=== PATIENT | female | born 1990 | race Two or more races ===

== ENCOUNTER 2016-08-10 23:50 | Emergency (ER) | payer MEDICAID ==
[~2016-08-10] VITALS: Ht 160 cm; Wt 103.0 kg
[2016-08-11 00:14] VITALS: Ht 160 cm; Wt 103.0 kg
[2016-08-11] MEDS ORDERED: ALBU8.5H3 INH (01:16)
[2016-08-11] MEDS ORDERED: CETI10CA PO (01:16)
[2016-08-11] MEDS ORDERED: ACET500C5 PO (01:16)
--- NOTE | 2016-08-11 01:37 | ERD ---
ER Documentation Chief Complaint Date/Time DATE: 08/11/16 TIME: 01:33 Chief Complaint cough, sob and chest wall pain for 2 days HPI 26-year-old female presents here in emergency department for complaints of cough , shortness of breath and chest wall pain after coughing for 2 days. Patient has been having dry cough, does not have any wheezing. Patient has been having on and off wheezing. Patient does not have any medications that she is taking at home. Patient has been runny nose nasal congestion clear nasal discharge. Patient is 31 weeks . Patient denies any abdominal pain, flank pain. Patient does wants her baby to be checked. Patient denies any pelvic pain. ROS All systems reviewed and are negative except as per history of present illness. Medications Home Meds Active Scripts Cetirizine Hcl* (Zyrtec*) 10 Mg Capsule, 10 MG PO DAILY, #30 TAB.CHEW Prov:MARBIN CRUZ NP 08/11/16 Acetaminophen* (Tylophen*) 500 Mg Capsule, 1 CAP PO Q6H Y for PAIN AND OR ELEVATED TEMP, #20 CAP Prov:MARBIN CRUZ NP 08/11/16 Albuterol Sulfate* (Proair HFA*) 8.5 Gm Hfa.aer.ad, 2 PUFF INH Q4H Y for WHEEZING AND SOB, #1 INHALER Prov:MARBIN CRUZ NP 08/11/16 Allergies Allergies: Coded Allergies: No Known Allergy (Unverified , 08/11/16) PMhx/Soc Medical and Surgical Hx: pt denies Medical Hx, pt denies Surgical Hx History of Surgery: No Anesthesia Reaction: No Hx Neurological Disorder: No Hx Respiratory Disorders: No Hx Cardiac Disorders: No Hx Psychiatric Problems: No Hx Miscellaneous Medical Probl: No Hx Alcohol Use: No Hx Substance Use: No Hx Tobacco Use: No Smoking Status: Never smoker FmHx Family History: No coronary disease, No diabetes, No other Physical Exam Vitals Vital Signs Date Time Temp Pulse Resp B/P Pulse Ox O2 Delivery O2 Flow Rate FiO2 08/11/16 00:14 98.3 95 20 98/60 96 Physical Exam GENERAL: The patient is well developed and appropriate for usual state of health, in no apparent distress. CHEST: Clear to auscultation bilaterally. There are no rales, wheezes or rhonchi. HEART: Regular rate and rhythm. No murmurs, clicks, rubs or gallops. No S3 or S4. ABDOMEN: Soft, nontender and nondistended. Good bowel sounds. No rebound or guarding. No gross peritonitis. No gross organomegaly or masses. No Garza sign or McBurney point tenderness. BACK: No midline or flank tenderness. EXTREMITIES: Equal pulses bilaterally. There is no peripheral clubbing, cyanosis or edema. No focal swelling or erythema. Full range of motion. Grossly neurovascularly intact. NEURO: Alert and oriented. Cranial nerves 2-12 intact. Motor strength in all 4 extremities with 5/5 strength. Sensation grossly intact. Normal speech and gait. SKIN: There is no apparent rash or petechia. The skin is warm and dry. HEMATOLOGIC AND LYMPHATIC: There is no evidence of excessive bruising or lymphedema. No gross cervical, axillary, or inguinal lymphadenopathy. Procedures/MDM Medical Decision Making: Patient symptoms are most likely consistent with acute bronchitis, which viral in origin. Patient's chest pain most likely is from chest wall pain from coughing a lot. Patient is not wheezing at this time. Breathing treatment here in emergency department was not necessary, patient will be given inhaler prescription for home with to help with her symptoms. There is low suspicion for Pneumonia at this time since patients lungs sounds are clear, patient O2 saturation is normal and patient doesnt show any respiratory distress. Radiology exam is not indicated at this time. There is low suspicion for other cardiopulmonary emergencies at this time such as CHF, Pulmonary Embolism, Pneumothorax, Aortic Aneurysm or any other cardiopulmonary emergencies at this time. There is low suspicion for sepsis. Patient appears well and is hemodynamically stable. Patient does not have any fever. Low suspicion for eclampsia preeclampsia, patient's blood pressure is normal. Disposition: Sent to labor and delivery for OB evaluation. Condition: Stable Prescriptions: Tylenol, albuterol, Zyrtec Instructions: Patient is advised to take medications as prescribed. Patient is advised to rest. Patient advised to increase fluid intake, do humidifier at home and if possible, do salt water gargles. Patient is advised that if symptoms are worse, shortness of breath, uncontrolled fever, stridor, vomiting, worst signs and symptoms to return to emergency department immediately. Otherwise, patient is advised to follow up with primary doctor in 1-2 days. Departure Diagnosis: Primary Impression: Acute bronchitis Bronchitis organism: unspecified organism Qualified Code: J20.9 - Acute bronchitis, unspecified organism Condition: Stable Patient Instructions: Bronchitis, No Antibiotic (Adult) MARBIN CRUZ NP Aug 11, 2016 01:37
== END 2016-08-11 01:30 | disposition home or self-care (01) ==
LOC: FTE 23:50
DX: J20.9 Acute bronchitis, unspecified (principal)
CPT/HCPCS: 99283

== ENCOUNTER 2016-08-11 02:10 | Outpatient (CLI) | payer MEDICAID ==
[~2016-08-11 02:10] MED LIST: ACET500C5 PO; ALBU8.5H3 INH; CETI10CA PO
--- NOTE | 2016-08-11 03:54 | RADRPT ---
PROCEDURE: US OB biophysical profile. CLINICAL INDICATION: decreased movements TECHNIQUE: Multiple sonographic images of the pelvis were obtained. The images were reviewed on a PACS workstation. COMPARISON: No pertinent prior examinations were submitted for comparison. FINDINGS: There is a single viable intrauterine gestation. Cardiac activity is present with 133 beats per min [place]. There is a vertex presentation. The placenta is fundal in position, grade 1/2 in appearance. There is a normal amount of amniotic fluid with an GIO = 10.3 cm. The cervix is closed, measuring up to 3.2 cm in length. There is some slight following of the cervi x. Biophysical profile: movement 2/2 tone 2/2. breathing 2/2 GIO 2/2 Total 03/16 IMPRESSION: Normal biophysical profile. Slight cervical funneling. RPTAT: HIKT . .Sean Rodriguez MD, Date Time Electronically viewed and signed by .Sean Rodriguez MD, on 08/11/2016 03:54 .T/
[2016-08-11 04:18] LABS: ADD UMIC YES; URINE BILIRUBIN (Dip) NEGATIVE (NEGATIVE); URINE BLOOD (Dip) TRACE (NEGATIVE); URINE COLOR LT. YELLOW (YELLOW); URINE GLUCOSE (Dip) NEGATIVE (NEGATIVE); URINE KETONES (Dip) 40 (NEGATIVE); URINE LEUKOCYTE ESTERASE (Dip) TRACE (NEGATIVE); URINE NITRITE (Dip) NEGATIVE (NEGATIVE); URINE TOTAL PROTEIN (Dip) NEGATIVE (NEGATIVE); URINE UROBILINOGEN (Dip) 0.2 E.U./dL (0.1-1.0)
[2016-08-11 04:46] LABS: BACTERIA,URINE OCCASIONAL; SQUAMOUS EPITHELIAL CELL,UR OCCASIONAL; URINE RBCS 0-2 /HPF (0)
--- NOTE | 2016-08-11 05:56 | TRIAGE ---
OB Triage Datetime Report Generated by CPN: 08/11/2016 05:55 Datetime: 08/11/2016 05:07 Labor Evaluation Frequency: X2 Monitor Mode: External Duration (sec)2399: 50 Quality: Mild Pattern: Normal: <= 5 Contractions in 10 Minutes Resting Tone Jameson: Relaxed Heart Rate FHR Baseline Rate: 140 Monitor Mode: Internal Scalp Electrode Variability: Moderate 6-25 bpm Accelerations: 15X15 Decelerations: None Category: Category I Datetime: 08/11/2016 04:30 Labor Evaluation Frequency: X2 Monitor Mode: External Duration (sec)2399: 50 Quality: Mild Pattern: Normal: <= 5 Contractions in 10 Minutes Resting Tone Jameson: Relaxed Heart Rate FHR Baseline Rate: 135 Variability: Moderate 6-25 bpm Accelerations: 15X15 Decelerations: None Category: Category I Pain Assessment Pain Presence: None/Denies Datetime: 08/11/2016 03:30 Labor Evaluation Frequency: NONE Monitor Mode: External Pattern: Normal: <= 5 Contractions in 10 Minutes Resting Tone Jameson: Relaxed Heart Rate FHR Baseline Rate: 130 Monitor Mode: External US Variability: Moderate 6-25 bpm Accelerations: 15X15 Decelerations: None Category: Category I Datetime: 08/11/2016 03:26 Time of Arrival: 08/11/2016 02:10 EGA: 31.0 Arrived By: Wheelchair Arrived From: Home Chief Complaint: PATIENT SENT UP FROM THE ER TO HAVE PATIENT CLEARED BY OB. PATIENT SEEN IN THE E R FOR CHEST PAIN AND SOB. Patient Complaints: Cough; Shortness of Breath Additional Patient Complaints: CHEST PAIN Time Provider Notified: 08/11/2016 02:30 Provider Notified: ARDALAN Initial Plan: BPP, UA, CVL Datetime: 08/11/2016 03:24 Monitor Mode: External US Datetime: 08/11/2016 02:48 Stage of : OB Triage Assessment Type: Triage Pain Assessment Pain Presence: Intermittent Datetime: 08/11/2016 02:44 Assessment Type: Triage Maternal Assessment Level of Consciousness: Fully Conscious DTR's/Clonus: DTRs 2+; No Clonus Headache: Denies Blurred Vision: No Respiratory Effort: Unlabored; Regular Rhythm; Equal Expansion Breath Sounds, Left: Clear and Equal Breath Sounds, Right: Clear and Equal Nausea/Vomiting: Denies RUQ Epigastric Pain: Denies Facial Edema: None Fall Risk Assessment History of Falling: (0) No Secondary Diagnosis: (0) No Ambulatory Aid: (0) Bedrest/Nurse Assist IV Therapy: (0) No Gait: (0) Normal/Bedrest/Immobile Mental Status: (0) Oriented to Own Ability Fall Score: 0 Fall Risk Score Definition: No Risk: No action required
--- NOTE | 2016-08-16 11:52 | QN ---
Documentation Comment Late entry note for exam 26 years old with IUP at 31 weeks presented to Triage due to an episode of chest pain and SOB and cough today, She denies any LOF, vaginal bleeding or decreased movement, Patient denies any dizziness, lightheadadness or any other complaint. Reports had some cold symptoms. Denies any OB complaint. GA: A&O, NAD Lungs; CTA Biateally CV: RRR Abdomen: Soft, non tender, no guarding, Gravid. Fundal Height is appropriate for GA" NST: CAt 1 No contractions on the monitor Lisa was seen in the ED and was diagnosed with Bronchitis Assessment: IUP at 31 weeks Cough and SOB due to recent cold symptoms Cleared in ED Diagnosed with Bronchitis No ob issue at this time Recommended to take Robitussin for cough and tylenol for cold symptoms PTL precaution and kick counts discussed follow up with PMD in a couple of days and Ob in 2-3 days as well ANSHU NYE MD Aug 16, 2016 11:52
== END 2016-08-11 05:23 | disposition home or self-care (01) ==
LOC: OBT 02:10 → L-D 02:15 → OBT 05:23
PROVIDERS: ATTEND Obstetrics & Gynecology
DX: O99.513 Diseases of the respiratory system complicating pregnancy, third trimester (principal); J40 Bronchitis, not specified as acute or chronic; Z3A.31 31 weeks gestation of pregnancy
CPT/HCPCS: 76817; 76818; 81001; Z7500; 81003; G0463

== ENCOUNTER 2016-09-16 05:49 | Inpatient (IN) | payer MEDICAID ==
[~2016-09-16] VITALS: Ht 160 cm; Wt 106.5 kg
[2016-09-16 06:01] VITALS: BP 117/88; PULSE 82; RESP 17; Ht 160 cm; Wt 106.5 kg
[2016-09-16] MEDS ORDERED: PREN1TAB79 PO (06:04)
--- NOTE | 2016-09-16 06:16 | TRIAGE ---
OB Triage Datetime Report Generated by CPN: 09/16/2016 06:16 Datetime: 09/16/2016 06:03 Vaginal Exam Dilatation (cms): 4.0 Effacement (%): 90 Station: -2 Exam By: Kenny Oden RN Membrane Status: Ruptured Membranes Rupture Method: Spontaneous Amniotic Fluid Color: Clear Amniotic Fluid Amount: Moderate Amniotic Fluid Odor: Normal Vaginal Bleeding: None Pool: Positive Nitrazine: Positive Cervix, Consistency: Soft Cervix, Position: Posterior Datetime: 09/16/2016 05:55 Time of Arrival: 09/16/2016 05:05 EGA: 36.1 Arrived By: Wheelchair Arrived From: Home Chief Complaint: UC's since 0400 Movement: Present Contractions: Regular Time Contractions Began: 09/16/2016 04:00 Contractions: Every 2-3 minutes Rupture of Membranes: Unsure Vaginal Bleeding: None Vaginal Discharge: Denies Recent Sexual Intercouse: Denies Abdominal Trauma: Not Applicable Patient Complaints: Contractions; Other Additional Patient Complaints: Leaking of fluid x1 episode when she woke up. Time Provider Notified: 09/16/2016 06:10 Provider Notified: Dr. Lezama Initial Plan: CEFM, Sterile spec, VE Datetime: 08/11/2016 03:26 EGA: 31.0 Datetime: 08/11/2016 02:44 Fall Risk Assessment Fall Score: 0 Fall Risk Score Definition: No Risk: No action required
[2016-09-16] MEDS ORDERED: LACTATED RINGER'S 1,000 ML IV SCH (06:21)
[2016-09-16] MEDS ORDERED: MISOPROSTOL 200 MCG TAB PR PRN ×2 (06:30→12:30)
[2016-09-16] MEDS ORDERED: OXYTOCIN 30 UNITS/LR 500 ML IV SCH (06:30)
[2016-09-16] MEDS ORDERED: OXYTOCIN 30 UNITS/LR 500 ML IV PRN ×2 (06:30→12:30)
[2016-09-16] MEDS ORDERED: CEFAZOLIN 2 GM/50 ML (PMX) 50 ML IV SCH (06:30)
[2016-09-16] MEDS ORDERED: METHYLERGONOVINE 0.2 MG INJ IM PRN ×2 (06:30→12:30)
[2016-09-16] MEDS ORDERED: CARBOPROST 250 MCG INJ IM PRN ×2 (06:30→12:30)
[2016-09-16 06:54] LABS: BASOPHIL # 0.1 10^3/ul (0.0-0.1); BASOPHILS % 0.4 % (0.0-2.0); EOSINOPHILS # 0.1 10^3/ul (0.0-0.5); EOSINOPHILS % 0.8 % (0.0-7.0); HEMATOCRIT 36.6 % (37.0-47.0); HEMOGLOBIN 12.2 g/dl (12.0-16.0); LYMPHOCYTES # 2.7 10^3/ul (0.8-2.9); LYMPHOCYTES % 21.4 % (15.0-51.0); MEAN CORPUSCULAR HEMOGLOBIN 29.2 pg (29.0-33.0); MEAN CORPUSCULAR HGB CONC 33.3 g/dl (32.0-37.0); MEAN CORPUSCULAR VOLUME 87.7 fl (82.0-101.0); MEAN PLATELET VOLUME 8.5 fl (7.4-10.4); MONOCYTE # 0.7 10^3/ul (0.3-0.9); MONOCYTES % 5.4 % (0.0-11.0); PLATELET COUNT 328 10^3/UL (140-440); RED BLOOD COUNT 4.17 10^6/ul (4.20-5.40); UNCORRECTED WBC 12.5 10^3/ul (4.8-10.8); WHITE BLOOD COUNT 12.5 10^3/ul (4.8-10.8)
[2016-09-16] MEDS ORDERED: morphine SULFATE/PF (10 MG/10 ML) INJ ONE (06:58)
[2016-09-16 06:59] LABS: CONDITION 1; LH ANALYZER COMMENTS 1
[2016-09-16] MEDS ORDERED: OXYTOCIN 10 UNIT INJ ONE (06:59)
[2016-09-16] MEDS ORDERED: CITRIC ACID/NA CITRATE 30 ML CUP PO ONE (07:00)
[2016-09-16] MEDS ORDERED: ONDANSETRON 4 MG INJ IV ONE (07:00)
[2016-09-16 07:16] LABS: INR 1.09; PROTIME 14.1 Sec (12.2-14.2); PT RATIO 1.1
[2016-09-16 07:17] LABS: PARTIAL THROMBOPLASTIN TIME 26.6 Sec (25.0-35.0)
[2016-09-16] MEDS ORDERED: PHENYLephrine (100 MCG/ML) 5ML SYG ONE ×3 (08:39→09:15)
[2016-09-16] MEDS ORDERED: morphine (1 MG/ML) 10ML SYRINGE IV PRN ×3 (09:30)
[2016-09-16] MEDS ORDERED: morphine 2 MG INJ IV PRN (09:30)
[2016-09-16] MEDS ORDERED: HYDROCODONE/APAP (5/325) TAB PO PRN (09:30)
[2016-09-16] MEDS ORDERED: ONDANSETRON 4 MG INJ IV PRN ×2 (09:30)
[2016-09-16] MEDS ORDERED: NALBUPHINE HCL (10 MG/1 ML) INJ IV PRN (09:30)
[2016-09-16] MEDS ORDERED: DIPHENHYDRAMINE 50 MG INJ IV PRN ×2 (09:30)
[2016-09-16] MEDS ORDERED: MEPERIDINE 25 MG INJ IV PRN (09:30)
[2016-09-16] MEDS ORDERED: EPHEDrine SULFATE 50 MG/5 ML SYG IV PRN (09:30)
[2016-09-16] MEDS ORDERED: HYDROmorphONE 1 MG/ML SYG IV PRN ×2 (09:30)
[2016-09-16] MEDS ORDERED: NALOXONE (0.4 MG/ML) INJ IV PRN (09:30)
[2016-09-16] MEDS ORDERED: morphine 4 MG/ML VIAL IV PRN (09:30)
[2016-09-16] MEDS ORDERED: HYDROmorphONE (0.2 MG/ML) 10ML SYG IV PRN ×3 (09:30)
[2016-09-16] MEDS ORDERED: KETOROLAC 30 MG INJ IV PRN (09:30)
[2016-09-16] MEDS ORDERED: ZOLPIDEM 5 MG TAB PO PRN (09:30)
[2016-09-16] MEDS ORDERED: DIPHENHYDRAMINE 50 MG INJ ONE (09:38)
[2016-09-16] MEDS ORDERED: DEXAMETHASONE 4 MG/ML 1 ML INJ ONE (09:38)
[2016-09-16] MEDS ORDERED: METOCLOPRAMIDE 10 MG INJ ONE (09:38)
[2016-09-16] MEDS ORDERED: KETOROLAC 30 MG INJ ONE (09:38)
[2016-09-16] MEDS ORDERED: ONDANSETRON 4 MG INJ ONE (09:38)
--- NOTE | 2016-09-16 09:59 | HP ---
Date/Time of Note Date/Time of Note DATE: 09/16/16 TIME: 09:51 OB - History Hx of Present Free Text/Dictation 25 years female 3 para 1 SAB 1 with EDC of October 13, 2016 admitted to [facility] with the history of previous in active labor being prepared for a repeat . Complication of the surgery including but not limited to bowel bladder injury wound infection wound hematoma and hemorrhage was discussed with the patient knowing all the above patient would like to proceed with the procedure Estimated Due Date: Sep 15, 2016 : 3 Para: 1 Spontaneous : 1 Care: Limited Care Ultrasounds: Normal mid trimester US Obstetrical Complications: None Medical Complications: None Past Family/Social History * Past Medical, Surgical, Family and Obstetric Histories reviewed from chart. Rubella: immune RPR/VDRL: Negative GBS Status: Negative HBsAG: Negative OB Admission Exam Vital Signs Vital Signs Vital Signs Date Time Temp Pulse Resp B/P Pulse Ox O2 Delivery O2 Flow Rate FiO2 09/16/16 06:01 98.2 82 17 117/88 Room Air Physical Exam HEENT: WNL Heart: Rhythm Normal Lungs: Clear, Equal Reflexes: Normal Cervical Dilatation: 8cm Effacement: 100% Station: +3 Membranes: Ruptured Amniotic Fluid: Clear Heart Rate: 130's Accelerations: Accelerations Present Varibility: Moderate Contractions on Admission: < 5 Minutes Apart Intensity: Firm Last 72 hours Lab Results CBC & BMP 09/16/16 06:40 OB Assessment/Plan Reason for admission: active labor Induction Method: other (Repeat ) CHITO SCHUSTER MD Sep 16, 2016 09:59
[2016-09-16] MEDS ORDERED: MEPERIDINE 50 MG INJ ONE (10:00)
[2016-09-16] MEDS ORDERED: MEPERIDINE 25 MG INJ IV ONE (11:00)
--- NOTE | 2016-09-16 12:13 | DELSUM ---
Delivery Summary A-C Datetime Report Generated by CPN: 09/16/2016 12:13 DELIVERY PERSONNEL Ophthalmology Surgical Technician: Alen, [facility] MATERNAL INFORMATION Delivery Anesthesia: Spinal Medications in Delivery: see anesthesia records Estimated Blood Loss (ml): 700 Placenta Cultured: No Maternal Complications: None LABOR SUMMARY EDC: 10/13/2016 00:00 No. Babies in Womb: 1 Attempted: No Labor Anesthesia: Intrathecal LABOR INFORMATION Reason for Induction: Not Applicable Onset of Labor: 09/16/2016 04:00 Group B Beta Strep: Not Done Group B Beta Strep: Not Done Antibiotics # of Doses: ancef 2 gm 0819 Steroids Given: None Reason Steroids Not Administered: Not Applicable MEMBRANES Membranes Rupture Method: Spontaneous Rupture of Membranes: 09/16/2016 04:00 Length of Rupture (hr): 5.08 Amniotic Fluid Color: Clear Amniotic Fluid Amount: Moderate Amniotic Fluid Odor: Normal STAGES OF LABOR Stage 3 hr: 0 Stage 3 min: 1 Total Time in Labor hr: 5 Total Time in Labor min: 6 CSECTION DELIVERY Primary Indication: Repeat Elective Other Primary Indication: SROM LABOR CSection Urgency: Emergency CSection Incidence: Repeat Labor: Labor Elective: Nonelective CSection Incision: Lower Uterine Transverse BABY A INFORMATION Delivery Date/Time: 09/16/2016 09:05 Method of Delivery: Born in Route : No : N/A Forceps: N/A Vacuum Extraction: N/A Shoulder Dystocia : N/A SHOULDER DYSTOCIA BABY A Delivery Date/Time: 09/16/2016 09:05 PRESENTATION/POSITION BABY A Presentation: Cephalic Cephalic Presentation: Vertex PLACENTA INFORMATION BABY A Placenta Delivery Time : 09/16/2016 09:06 Placenta Method of Delivery: Manual Removal Placenta Status: Delivered SCORES BABY A Heart Rate 1 min: >100 bpm Resp Effort 1 min: Good Cry Reflex Irritability 1 min: Cough/Sneeze/Pulls Away Muscle Tone 1 min: Active Motion Color 1 min: Body [place], Extremit Blue SCORE 1 MIN: 9 Heart Rate 5 min: >100 bpm Resp Effort 5 min: Good Cry Reflex Irritability 5 min: Cough/Sneeze/Pulls Away Muscle Tone 5 min: Active Motion Color 5 min: Body [place], Extremit Blue SCORE 5 MIN: 9 INFANT INFORMATION BABY A Gestational Age at Delivery: 36.1 Gestational Status: Late - 34- 36.6 Weeks Condition : Stable Sex: Female IDENTIFICATION/MEDS BABY A ID Band Number: [id number] ID Band Location: Right Leg; Left Arm Sensor Applied: Yes Sensor Number: [id number] Sensor Location : Cord Clamp Vitamin K Given : Not Given Erythromycin Given: Not Given WEIGHT/LENGTH BABY A Birthweight (gm): 3370 Weight (lb): 7 Infant Weight (oz): 7 Infant Length (in): 20.00 Infant Length (cm): 50.80 CORD INFORMATION BABY A No. Cord Vessels: 3 Nuchal Cord : N/A Cord Blood Taken: Yes Infant Suction: Mouth; Nose
--- NOTE | 2016-09-16 12:13 | OPR ---
DATE OF OPERATION: 09/16/2016 PREOPERATIVE DIAGNOSES: 1. Intrauterine at term. 2. History of previous section, in active labor. POSTOPERATIVE DIAGNOSES: 1. Intrauterine at term. 2. History of previous section, in active labor. OPERATION PERFORMED: Repeat transverse low cervical section. SURGEON: Chito Schuster MD INVERTED BLOCK OPERATOR: Amparo Joy MD ANESTHESIA: Spinal. ANESTHESIOLOGIST: Dr. Figueredo FINDINGS: Live baby girl with Apgars 9 and 9. DETAILS OF THE PROCEDURE: Under satisfactory spinal anesthesia, the patient was prepped and draped and placed in supine position, tilted to the left. Pfannenstiel incision was made, incision carried through the subcutaneous tissue. Bleeders brought under control with electrocautery. Fascia incis ed to the length of the incision. Rectus muscle divided in midline. Peritoneum exposed, entered th rough a transverse incision. Exploration of abdomen. Gravid uterus, normal appearing tubes and ova lindsey, extremely thinned out lower segment of the uterus to the thickness of 1 to 2 mm. Bladder flap developed. Transverse incision was made in the upper part of the lower segment of the uterus where the tissue was slightly thicker. Amniotic sac ruptured. Clear amniotic fluid noted. Live baby gi rl was delivered from LOT position, which the presenting part was wedged in at that position. Nasal oropharyngeal suction was performed. Cord was clamped after pulsation stopped, and baby hand ed to the team for immediate attention. The patient received 20 units of Pitocin. Placenta delivered manually intact. Uterine cavity clean ed with wet sponge and drainage established. Uterus closed in 2 layers using Monocryl #1 in continu ous fashion. Peritoneal cavity irrigated with warm saline. Sponge, needle and instrument reported to be correct. Abdominal peritoneum closed with 2-0 chromic catgut continuously. Rectus muscle marcus roximated with few interrupted 2-0 chromic catgut. Fascia closed with #1 PDS in a continuous fashio n. Subcutaneous tissue approximated with few interrupted 2-0 chromic catgut. Skin closed with stap les. Estimated blood loss 600 mL to 700 mL. Urine bag contained 200 mL of clear urine. The patien t tolerated procedure well, transferred to recovery room in a good condition. Dictated By: CHITO SCHUSTER MD HF/NTS Conf#: [id number] [facility]#: [id number]
[2016-09-16] MEDS: OXYTOCIN 30 UNITS/LR 500 ML IV SCH ×3 (12:15→19:54)
[2016-09-16] MEDS ORDERED: LANOLIN 7 GM TUBE TOP PRN (12:30)
[2016-09-16] MEDS ORDERED: OXYCODONE/ACETAMINOPHEN (5/325) TAB PO PRN (12:30)
[2016-09-16] MEDS ORDERED: CEFAZOLIN 1 GM/50 ML (PMX) 50 ML IVPB SCH (12:30)
[2016-09-16] MEDS ORDERED: ACETAMINOPHEN/CODEINE #3 TAB PO PRN ×2 (12:30)
[2016-09-16 12:40] VITALS: BP 134/65; RESP 18
[2016-09-16 12:48] LABS: OPIATES Negative (NEGATIVE)
[2016-09-16 12:53] LABS: BARBITURATES Negative (NEGATIVE); BENZODIAZEPINES Negative (NEGATIVE); CANNABINOIDS Negative (NEGATIVE); COCAINE Negative (NEGATIVE)
[2016-09-16 13:10] VITALS: BP 126/54; PULSE 88; RESP 18
[2016-09-16 16:00] VITALS: BP 133/54; PULSE 102; RESP 18
[2016-09-16 19:45] VITALS: BP 112/63; PULSE 100; RESP 18
[2016-09-16] MEDS: SENNA/DOCUSATE NA (8.6MG/50MG) TAB PO SCH (21:00)
[2016-09-16 23:45] VITALS: BP 107/61; PULSE 97; RESP 18
[2016-09-17] MEDS: OXYTOCIN 30 UNITS/LR 500 ML IV SCH ×2 (00:15→04:15)
[2016-09-17 04:30] VITALS: BP 100/49; PULSE 94; RESP 18
[2016-09-17] MEDS: IBUPROFEN 600 MG TAB PO SCH ×4 (06:00→23:11)
[2016-09-17 08:02] LABS: BASOPHILS % 0.4 % (0.0-2.0); EOSINOPHILS % 0.2 % (0.0-7.0); HEMATOCRIT 27.2 % (37.0-47.0); HEMOGLOBIN 9.1 g/dl (12.0-16.0); LYMPHOCYTES # 3.1 10^3/ul (0.8-2.9); LYMPHOCYTES % 22.6 % (15.0-51.0); MEAN CORPUSCULAR HEMOGLOBIN 29.1 pg (29.0-33.0); MEAN CORPUSCULAR HGB CONC 33.4 g/dl (32.0-37.0); MEAN PLATELET VOLUME 8.7 fl (7.4-10.4); MONOCYTE # 0.9 10^3/ul (0.3-0.9); MONOCYTES % 6.9 % (0.0-11.0); NEUTROPHIL # 9.6 10^3/ul (1.6-7.5); NEUTROPHILS % 69.9 % (39.0-77.0); PLATELET COUNT 266 10^3/UL (140-440); RED BLOOD COUNT 3.13 10^6/ul (4.20-5.40); RED CELL DISTRIBUTION WIDTH 16.5 % (11.5-14.5); UNCORRECTED WBC 13.7 10^3/ul (4.8-10.8); WHITE BLOOD COUNT 13.7 10^3/ul (4.8-10.8)
[2016-09-17 08:09] LABS: CONDITION 1; LH ANALYZER COMMENTS 1
[2016-09-17] MEDS: SENNA/DOCUSATE NA (8.6MG/50MG) TAB PO SCH ×2 (09:10→21:41)
[2016-09-17] MEDS ORDERED: DIPHENHYDRAMINE 50 MG INJ IV PRN (09:30)
[2016-09-17] MEDS: OXYCODONE/ACETAMINOPHEN (5/325) TAB PO PRN ×2 (12:34→23:11)
[2016-09-17 16:00] VITALS: BP 100/59; PULSE 79; RESP 18
--- NOTE | 2016-09-17 16:30 | PN ---
Date/Time of Note Date/Time of Note DATE: 09/17/16 TIME: 16:29 OB Subjective Subjective Subjective Postop day 1 Vital sign stable, afebrile, abdomen soft, bowel sounds present, lochia normal, extremity normal, ambulation recommended Laboratory Tests Test 09/17/16 06:45 Basophils # 0.010^3/ul Basophils % 0.4% Blood Morphology Comment Eosinophils # 0.010^3/ul Eosinophils % 0.2% Hematocrit 27.2% Hemoglobin 9.1g/dl Lymphocytes # 3.110^3/ul Lymphocytes % 22.6% Mean Corpuscular Hemoglobin 29.1pg Mean Corpuscular Hemoglobin Concent 33.4g/dl Mean Corpuscular Volume 87.0fl Mean Platelet Volume 8.7fl Monocytes # 0.910^3/ul Monocytes % 6.9% Neutrophils # 9.610^3/ul Neutrophils % 69.9% Nucleated Red Blood Cells # 0.010^3/ul Nucleated Red Blood Cells % 0.0/100WBC Platelet Count 48903^3/UL Red Blood Count 3.1310^6/ul Red Cell Distribution Width 16.5% White Blood Count 13.710^3/ul Current Medications Medications (Trade) Dose Ordered Sig/[place] Route PRN Reason Start Time Stop Time Status Last Admin Dose Admin Cefazolin Sodium/ Dextrose 50 ml @ 100 mls/hr ONCE IV 09/16/16 06:30 09/16/16 12:24 DC Oxytocin/Lactated Ringer's 500 ml @ 0 mls/hr ONCE PRN IV For Hemorrhage Management 09/16/16 06:30 09/16/16 12:24 DC Methylergonovine Maleate (Methergine) 0.2 mg ONCE PRN IM VAGINAL BLEEDING 09/16/16 06:30 09/16/16 12:25 DC Carboprost Tromethamine (Hemabate) 250 mcg ONCE PRN IM VAGINAL BLEEDING 09/16/16 06:30 09/16/16 12:25 DC Misoprostol 1000 mcg 1,000 mcg ONCE PRN [place] VAGINAL BLEEDING 09/16/16 06:30 09/16/16 12:25 DC Oxytocin/Lactated Ringer's 500 ml @ 125 mls/hr ONCE IV 09/16/16 06:30 09/16/16 12:24 DC 09/16/16 11:37 Lactated Ringer's (Lr) 1,000 ml @ 125 mls/hr Q8H IV 09/16/16 06:21 09/16/16 12:24 DC 09/16/16 07:16 Morphine Sulfate (Duramorph) 10 mg STK-MED ONCE .ROUTE 09/16/16 06:58 09/16/16 06:59 DC Oxytocin (Oxytocin) 10 units STK-MED ONCE .ROUTE 09/16/16 06:59 09/16/16 07:00 DC Ondansetron HCl (Zofran Inj) 4 mg pre-procedure ONCE IV 09/16/16 07:00 09/16/16 07:06 DC 09/16/16 07:15 Citric Acid/ Sodium Citrate (Bicitra) 30 ml pre-procedure ONCE PO 09/16/16 07:00 09/16/16 07:06 DC 09/16/16 07:14 Phenylephrine HCl (Chu-Synephrine Inj Syg) 500 mcg STK-MED ONCE .ROUTE 09/16/16 08:39 09/16/16 08:40 DC Phenylephrine HCl (Chu-Synephrine Inj Syg) 500 mcg STK-MED ONCE .ROUTE 09/16/16 08:56 09/16/16 08:57 DC Morphine Sulfate (morphine (REC)) 2 mg PACU ORDER PRN IV MILD PAIN LEVEL 1-3 09/16/16 09:30 09/16/16 12:24 DC Morphine Sulfate (morphine (REC)) 4 mg PACU ORDER PRN IV MODERATE PAIN LEVEL 4-6 09/16/16 09:30 09/16/16 12:24 DC Morphine Sulfate (morphine (REC)) 6 mg PACU ORDER PRN IV SEVERE PAIN LEVEL 7-10 09/16/16 09:30 09/16/16 12:24 DC Hydromorphone HCl (Dilaudid (Rec)) 0.2 mg PACU ORDER PRN IV MILD PAIN LEVEL 1-3 09/16/16 09:30 09/16/16 12:24 DC Hydromorphone HCl (Dilaudid (Rec)) 0.4 mg PACU ORDER PRN IV MODERATE PAIN LEVEL 4-6 09/16/16 09:30 09/16/16 12:24 DC Hydromorphone HCl (Dilaudid (Rec)) 0.6 mg PACU ORDER PRN IV SEVERE PAIN LEVEL 7-10 09/16/16 09:30 09/16/16 12:24 DC Ondansetron HCl (Zofran Inj) 4 mg PACU ORDER PRN IV NAUSEA AND/OR VOMITING 09/16/16 09:30 09/16/16 12:24 DC Ephedrine Sulfate 5 mg PACU ORDER PRN IV MAP LESS THAN 60 09/16/16 09:30 09/16/16 12:24 DC Meperidine HCl (Demerol) 25 mg PACU ORDER PRN IV POST-OP RIGORS 09/16/16 09:30 09/16/16 12:24 DC Diphenhydramine HCl (Benadryl) 25 mg PACU ORDER PRN IV PRURITUS 09/16/16 09:30 09/16/16 12:24 DC Hydromorphone HCl (Dilaudid) 0.2 mg Q2H PRN IV PAIN LEVEL 1-5 09/16/16 09:30 09/16/16 12:24 DC Hydromorphone HCl (Dilaudid) 0.4 mg Q2H PRN IV PAIN LEVEL 6-10 09/16/16 09:30 09/16/16 12:24 DC Morphine Sulfate (morphine) 2 mg Q2H PRN IV PAIN LEVEL 1-5 09/16/16 09:30 Morphine Sulfate (morphine) 4 mg Q2H PRN IV PAIN LEVEL 6-10 09/16/16 09:30 Ketorolac Tromethamine (Toradol) 30 mg Q6H PRN IV PAIN LEVEL 6-10 09/16/16 09:30 09/19/16 09:29 09/17/16 06:09 Acetaminophen/ Hydrocodone Bitart ([place] (5/325)) 1 tab Q4H PRN PO PAIN LEVEL 4-6 09/16/16 09:30 09/16/16 12:24 DC Diphenhydramine HCl (Benadryl) 25 mg Q4H PRN IV PRURITUS 09/16/16 09:30 09/16/16 14:00 DC Nalbuphine HCl (Nubain) 10 mg Q4H PRN IV PRURITUS 09/16/16 09:30 09/16/16 12:24 DC Ondansetron HCl (Zofran Inj) 4 mg Q6H PRN IV NAUSEA AND/OR VOMITING 09/16/16 09:30 Zolpidem Tartrate (Ambien) 5 mg HS MAY REPEAT X 1 PRN PO INSOMNIA 09/16/16 09:30 09/16/16 12:24 DC Naloxone HCl (Narcan) 0.2 mg Q2M PRN IV FOR RESP RATE 8 OR LESS 09/16/16 09:30 Miscellaneous Information (* Miscellaneous Pharmacy Order) DURAMORPH: 0.2 MG SPI... GIVEN NEURAXIAL XX 09/16/16 09:30 09/16/16 12:24 DC Phenylephrine HCl (Chu-Synephrine Inj Syg) 500 mcg STK-MED ONCE .ROUTE 09/16/16 09:15 09/16/16 09:16 DC Ondansetron HCl (Zofran Inj) 4 mg STK-MED ONCE .ROUTE 09/16/16 09:38 09/16/16 09:39 DC Metoclopramide HCl (Reglan) 10 mg STK-MED ONCE .ROUTE 09/16/16 09:38 09/16/16 09:39 DC Ketorolac Tromethamine (Toradol) 30 mg STK-MED ONCE .ROUTE 09/16/16 09:38 09/16/16 09:39 DC Dexamethasone (Decadron) 4 mg STK-MED ONCE .ROUTE 09/16/16 09:38 09/16/16 09:39 DC Diphenhydramine HCl (Benadryl) 50 mg STK-MED ONCE .ROUTE 09/16/16 09:38 09/16/16 09:39 DC Meperidine HCl (Demerol) 50 mg STK-MED ONCE .ROUTE 09/16/16 10:00 09/16/16 10:01 DC Meperidine HCl (Demerol) 25 mg ONCE ONCE IV 09/16/16 11:00 09/16/16 11:01 DC 09/16/16 10:47 Acetaminophen/ Codeine Phosphate (Tylenol No.3) 1 tab Q4H PRN PO PAIN LEVEL 4-6 09/16/16 12:30 Acetaminophen/ Codeine Phosphate (Tylenol No.3) 2 tab Q4H PRN PO PAIN LEVEL 7-10 09/16/16 12:30 Oxycodone/ Acetaminophen (Percocet (5/ 325)) 1 tab Q4H PRN PO PAIN LEVEL 4-6 09/16/16 12:30 Oxycodone/ Acetaminophen (Percocet (5/ 325)) 2 tab Q4H PRN PO PAIN LEVEL 7-10 09/16/16 12:30 09/17/16 12:34 Ibuprofen (Motrin) 600 mg Q6 PO 09/17/16 06:00 Simethicone (Mylicon) 160 mg Q8H PRN PO DISTENSION/GAS/BLOATING 09/16/16 12:30 Senna/Docusate Sodium (Senokot-S) 1 tab BID PO 09/16/16 21:00 09/17/16 09:10 Lanolin (Mrd-H-Wifepv) 1 applic BEDSIDE MEDICATION PRN TOP BEDSIDE FOR MARIO TO NIPPLES 09/16/16 12:30 Diphtheria/ Tetanus/Acell Pertussis 0.5 ml 0.5 ml ONCE ONCE IM* 09/19/16 09:00 09/19/16 09:01 Oxytocin/Lactated Ringer's 500 ml @ 0 mls/hr ONCE PRN IV For Hemorrhage Management 09/16/16 12:30 Methylergonovine Maleate (Methergine) 0.2 mg ONCE PRN IM VAGINAL BLEEDING 09/16/16 12:30 Carboprost Tromethamine (Hemabate) 250 mcg ONCE PRN IM VAGINAL BLEEDING 09/16/16 12:30 Misoprostol 1000 mcg 1,000 mcg ONCE PRN [place] VAGINAL BLEEDING 09/16/16 12:30 Cefazolin Sodium 50 ml @ 100 mls/hr ONCE IVPB 09/16/16 12:30 09/16/16 13:00 DC 09/16/16 16:10 Oxytocin/Lactated Ringer's 500 ml @ 125 mls/hr Q4H IV 09/16/16 12:15 09/16/16 19:54 Influenza Virus Vaccine (Fluzone) 0.5 ml ONCE ONCE IM* 09/18/16 09:00 09/18/16 09:01 Diphenhydramine HCl (Benadryl) 25 mg Q4H PRN IV PRURITUS 09/17/16 09:30 09/17/16 09:31 DC 09/17/16 09:12 CHITO SCHUSTER MD Sep 17, 2016 16:30
[2016-09-17 20:00] VITALS: BP 110/70; PULSE 87; RESP 19
[2016-09-18 04:00] VITALS: BP 101/55; PULSE 82; RESP 18
[2016-09-18] MEDS: IBUPROFEN 600 MG TAB PO SCH ×4 (05:32→23:44)
[2016-09-18 08:00] VITALS: BP 107/63; PULSE 94; RESP 18
[2016-09-18] MEDS ORDERED: INFLUENZA VIRUS VACCINE 0.5 ML (DISPENSING) IM* ONE (09:00)
[2016-09-18] MEDS: SENNA/DOCUSATE NA (8.6MG/50MG) TAB PO SCH ×2 (09:17→21:19)
--- NOTE | 2016-09-18 15:00 | PN ---
Date/Time of Note Date/Time of Note DATE: 09/18/16 TIME: 14:59 OB Subjective Subjective Subjective Postop day 2 Afebrile abdomen soft incision dry bowel sound present no bowel movement ambulation recommended. CHITO SCHUSTER MD Sep 18, 2016 15:00
[2016-09-18 16:15] VITALS: BP 124/67; PULSE 98; RESP 20
[2016-09-18 20:05] VITALS: BP 136/93; PULSE 100; RESP 18
[2016-09-19] VITALS: BP 111/66; PULSE 76; RESP 18
[2016-09-19 04:00] VITALS: BP 105/74; PULSE 97; RESP 18
[2016-09-19] MEDS: IBUPROFEN 600 MG TAB PO SCH ×2 (05:46→11:48)
[2016-09-19 07:30] VITALS: BP 126/80; PULSE 75; RESP 20
[2016-09-19] MEDS ORDERED: DIPHTH/TET/ACEL PERTUSS (ADULT) 0.5 ML VIAL IM* ONE (09:00)
[2016-09-19] MEDS: SENNA/DOCUSATE NA (8.6MG/50MG) TAB PO SCH (09:38)
--- NOTE | 2016-09-19 11:17 | DS ---
Date/Time of Note Date/Time of Note DATE: 09/19/16 TIME: 11:13 Obstetrical Discharge Record Final Diagnosis Final Diagnosis: Term delivered Section Section: Repeat Condition on Discharge Physical Assessment Last Vitals: Post day 3 Vital sign stable, abdomen soft uterus firm incision dry bowel sounds had bowel movement being discharged home with follow-up instruction to be seen at the clinic in 4 days to discontinue her ciara at the time of discharge patient received a prescription of analgesics multivitamin and iron supplement. Voiding: Yes Bowel Movement: Yes Breast: Soft, non-tender, Filling Fundus: Firm Abdomen and Incision: Dry healing well Calf Tenderness: No Patient Condition: Good CHITO SCHUSTER MD Sep 19, 2016 11:17
== END 2016-09-19 16:30 | disposition home or self-care (01) | DRG 765 ==
LOC: OBT 05:49 → L-D 05:50 → OBT 06:16 → L-D 06:16 → PP1 12:30
PROVIDERS: ADMIT Obstetrics & Gynecology; ATTEND Obstetrics & Gynecology
PROC: 10D00Z1 Extraction of Products of Conception, Low, Open Approach (ICD-10-PCS; principal; 2016-09-16)
PROC: 3E00X4Z Introduction of Serum, Toxoid and Vaccine into Skin and Mucous Membranes, External Approach (ICD-10-PCS; 2016-09-19)
DX: O34.211 Maternal care for low transverse scar from previous cesarean delivery (principal); O60.14X0 Preterm labor third trimester with preterm delivery third trimester, not applicable or unspecified; Z23 Encounter for immunization; Z3A.36 36 weeks gestation of pregnancy; Z37.0 Single live birth
CPT/HCPCS: 80307; 85025; 85610; 85730; 86592; 86850; 86900; 86901; 87340; 90686; 90715; 99464; G0463; J0690; J1100; J1200; J1885; J2175; J2274; J2370; J2405; J2590; J2765; J7120